=== PATIENT | female | born 1935 | race Caucasian/White ===

== ENCOUNTER 2016-06-16 12:45 | Inpatient (IN) ==
--- NOTE | 2016-06-16 15:24 | Internal Med History&Physical ---
<Pierce Oconnell - Last Filed: 06/16/16 18:16> Date of Encounter: 06/16/16 Time of Encounter: 14:33 Assessment and Plan (1) Preoperative clearance Current visit: Yes Status: Acute -L hip and wrist fracture. Admitted from [facility] EM department. -Orders at [facility]: labs, CPK, UA, PTT/INR, CT the head and spine shows no acute intracranial abnormality, EKG shows sinus, T wave inversion, QTc 486; X-ray 2 view left hip shows subcapital fracture; Three-view of the left wrist shows acute fractures of the distal left radius and ulna. CD with images with patient information on the floor. -Does not complain of knee or foot pain. -Will reorder labs, echo ordered. -No surgical clearance. Pending cardio consult. (2) Abnormal EKG Current visit: Yes Status: Acute -Patient denies CP, SOB, Cardiac history, surgical history only for total hysterectomy and rectal surgery. Only takes Aspirin 325mg BID. No blood thinners. Started on Heparin SQ -EKG shows ventricular rate 76, normal sinus rhythm, T-wave abnormality, prolonged QTC. Unable to compare to previous EKG. -Echo, troponin, repeat labs ordered, cardiology consulted, -QTC 486, hold risperidone and zofran. (3) Closed left hip fracture Current visit: Yes Status: Acute -Surgeon admitted patient. Qualifiers: Encounter type: initial encounter Qualified Code(s): S72.002A - Fracture of unspecified part of neck of left femur, initial encounter for closed fracture (4) Closed fracture of left wrist Current visit: Yes Status: Acute Qualifiers: Encounter type: initial encounter Qualified Code(s): S62.102A - Fracture of unspecified carpal bone, left wrist, initial encounter for closed fracture (5) Multiple allergies Current visit: Yes Status: Acute -Multiple allergies. Sulfa and penicillin allergy causes anaphylaxis -Patient took morphine, zofran and Ativan without complication in ED. Internal Medicine - H&P: HPI Chief complaint: L Wrist and Hip fracture Admitted From: Direct Admit Plans for Post Hospital Care: Home History of present illness: Ms. Brenner is a 81 year old female admitted from [facility] for L wrist and Hip fracture. At 6:30am this morning patient trip and fell on the floor. The trip was from being clumsy and not putting her shoes on all the way. She lives home alone, but has her children who are close and check up on her a lot. At the ER, workup revealed L hip and L wrist fracture. Patient is in the room with her sisters. She is speaking clearly, smiling, laughing, complains of moderate pain over the fracture areas. Denies any CP, SOB. Admits to tingling in her fingers, no tingling in her leg. She is able to feel and move her fingers/toes. 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 Has not gotten tetanus in last 10 years, unsure if received in ED. takes aspirin 325mg BID for "achy joints". Past Med Surg Social Fam HX - Past Medical History Source: patient, other (and daughter at bedside) Medical history: dementia Psychiatric history: depression, previous psychiatric hospitalization - Past Surgical History Surgical History: hysterectomy (total), other (rectal surgery to remove hemrroids ) - Social History Smoking Status: Never smoker Smokeless Tobacco Status: No Drug use: none Internal Medicine - H&P: Meds Aspirin [Ecotrin] 325 mg PO BID 06/16/16 [History] Buspirone HCl [Buspar] 10 mg PO TID 06/16/16 [History] Latanoprost [Xalatan] 1 drop BOTH EYES HS 06/16/16 [History] RisperiDONE [Risperdal] 0.5 mg PO TID 06/16/16 [History] Allergies acetaminophen [From Percocet] Allergy (Verified 06/16/16 14:28) See Comments UNFORSURE ciprofloxacin [From Cipro] Allergy (Verified 06/16/16 14:28) Congested codeine Allergy (Verified 06/16/16 14:28) Hives Cortisone Allergy (Verified 06/16/16 14:28) See Comments 10 YEARS AGO escitalopram [From Lexapro] Allergy (Verified 06/16/16 14:28) See Comments gabapentin [From Neurontin] Allergy (Verified 06/16/16 14:28) See Comments CAUSES EYE TO JUMP AROUND iodine Allergy (Verified 06/16/16 14:28) Anaphylaxis lovastatin [From Mevacor] Allergy (Verified 06/16/16 14:28) See Comments ON ALLERGY LIST BUT PATIENT IS UNFORSURE meperidine [From Demerol] Allergy (Verified 06/16/16 14:28) See Comments UNFORSURE mometasone furoate [From Nasonex] Allergy (Verified 06/16/16 14:28) See Comments REALLY STRONG SO I WENT BACK TO [facility] niacin [From Niaspan Extended-Release] Allergy (Verified 06/16/16 14:28) See Comments UNSURE omeprazole [From Prilosec] Allergy (Verified 06/16/16 14:28) Swelling of Lip/Tongue/Throat Oxycodone [From Percocet] Allergy (Verified 06/16/16 14:28) See Comments UNFORSURE Penicillins [PCN] Allergy (Verified 06/16/16 14:28) Hives prednisone Allergy (Verified 06/16/16 14:28) See Comments PATIENT UNFORSURE propoxyphene [From Darvon] Allergy (Verified 06/16/16 14:28) See Comments ON ALLERGY LIST BUT PATIENT UNFOR SURE OF REACTION risedronate sodium [From Actonel] Allergy (Verified 06/16/16 14:28) See Comments UNFORSURE rofecoxib [From Vioxx] Allergy (Verified 06/16/16 14:28) See Comments UNFORSURE HAD A REACTION AND HE CHANGED MY MEDS Sulfa (Sulfonamide Antibiotics) Allergy (Verified 06/16/16 14:28) Anaphylaxis topiramate [From Topamax] Allergy (Verified 06/16/16 14:28) See Comments UNFORSURE tramadol [From Ultram] Allergy (Verified 06/16/16 14:28) Hives venlafaxine [From Effexor] Allergy (Verified 06/16/16 14:28) See Comments UNFORSURE All Systems PM: A 10-system review of systems was performed and is negative for pertinent findings except as documented above in the HPI. - Cardiovascular Cardiovascular ROS IM: no chest pain, no diaphoresis, no dyspnea on exertion, no irregular heart rhythm, no palpitations, no syncope - Respiratory Respiratory: no cough, no dyspnea, no hemoptysis, no wheezing, no pain on inspiration - Gastrointestinal Gastrointestinal: no abdominal pain, no diarrhea, no hematemesis, no hematochezia, no melena, no nausea, no vomiting - Genitourinary Genitourinary: no change in urinary stream, no dysuria, no flank pain, no hematuria - Musculoskeletal Musculoskeletal ROS IM: as per HPI - Integumentary Integumentary IM: as per HPI - Neurological Neurological ROS: tingling, no confusion, no convulsions, no focal weakness, no numbness, no tremor(s) - Psychiatric Psychiatric: depression, no suicidal ideation, no visual hallucinations - Constitutional Vitals: Temp Pulse Resp BP Pulse Ox 97.8 F 71 16 134/72 96 06/16/16 13:47 06/16/16 13:47 06/16/16 13:47 06/16/16 13:47 06/16/16 13:47 General appearance: Present: A&O X 3, no acute distress, answers questions appropriately. Absent: morbidly obese, underweight - Head Head exam: Present: atraumatic - Eye Eye exam: Present: EOMI - ENT ENT exam: Present: mucous membranes dry - Respiratory Respiratory exam: Present: CTAB - Cardiovascular Cardiovascular exam: Present: RRR. Absent: diastolic murmur, distant heart sounds, systolic murmur - GI/Abdominal GI/Abdominal exam: Present: normal bowel sounds, soft, no peritoneal signs. Absent: distended, tenderness - Expanded Lower Extremities Exam Hip exam: Present: swelling (mild ), tenderness. Absent: abrasion, crepitus, deformity, ecchymosis, erythema, laceration Upper Leg exam: Present: swelling (mild), tenderness. Absent: abrasion, crepitus, deformity, dislocation, ecchymosis, laceration Knee exam: Absent: ecchymosis - Other Additional findings: L arm: in splint. able to move fingers against resistance, sensation WNL, warm to touch/good blood flow. no signs of splint wrapped too tight. L leg: tibial and pedal pulses intact. able to dorsiflex and plantar flex against resistance. No pain in foot or knee. Internal Med - H&P Results - Labs CBC & Chem 7: 06/16/16 15:58 06/16/16 15:58 - EKG Data -: EKG Interpreted by Myself EKG shows normal: sinus rhythm, ST-T waves (inversion) Rate: normal - EKG Data Prior EKG available for review: no Interpretation IM: other (rate 76, rhythm sinus,OK 158, QRS 92, T wave inversions, QTc 486 ) <Cuco Castañeda Last Filed: 06/17/16 14:50> Date of Encounter: 06/16/16 Internal Medicine - H&P: HPI History of present illness: Ms. Brenner is a 81 year old female All Systems PM: A 10-system review of systems was performed and is negative for pertinent findings except as documented above in the HPI. - Constitutional Vitals: Temp Pulse Resp BP Pulse Ox 98.5 F 95 18 155/74 96 06/17/16 10:34 06/17/16 10:34 06/17/16 10:34 06/17/16 10:34 06/17/16 10:34 Internal Med - H&P Results - Labs CBC & Chem 7: 06/17/16 03:50 06/17/16 03:50 Labs: Short CBC 06/16/16 06/17/16 Range/Units 15:58 03:50 WBC 9.9 (4.3-11.1) K/mcL Hgb 13.0 (11.5-15.4) g/dL Hct 36.5 (35.3-44.9) % Plt Count 130 L 126 L (140-400) K/mcL Neutrophils # 8.8 (1.6-8.9) K/mcL BMP 06/16/16 06/17/16 15:58 03:50 Sodium 138 137 Potassium 4.1 3.8 Chloride 105 108 Carbon Dioxide 21 18 L BUN 14 15 Creatinine 0.73 0.74 Glucose 116 H 103 H Calcium 9.1 8.3 L Cardiac Enzymes 06/16/16 Range/Units 15:58 Troponin I 0.01 (0-0.03) ng/mL - Attending Attestation I examined this patient and my medical decision-making was reviewed with the Resident Physician on 06/17/16. I agree with the documented findings, disposition and treatment plan as described except to the extent set forth below. Ms. Brenner is an 81 y/o female with no reported history had mechanical fall today. She is found to have L hip and L wrist fractures and transferred here for repair. At the current time her only complaint is pain in arm and leg. Denies hx of heart disease. No CP with walking and no dizziness or dyspnea. Exam Alert. Mod distress due to pain Mucus membranes dry Heart reg with murmur Lungs clear Abd soft Pulses present EKG - ST/T changes - ? LVH versus ischemia I/P 1. L hip fracture - needs cardiac clearance due to abnl EKG 2. L wrist fracture 3. Abnl EKG - most likely LVH. Echo ordered. Troponin ordered. Card eval. Further diagnoses and plan as above. Pt high risk due to acute fracture.
[2016-06-16 16:16] LABS: Basophils % 0.2 %; Hematocrit 36.5 % (35.3-44.9); Immature Granulocytes % 0.5 % (0-4); Lymphocytes # 0.6 K/mcL (0.6-4.6); Mean Corpuscular HGB Conc 35.6 g/dL (31.6-35.5); Mean Corpuscular Hemoglobin 32.1 pg (28.0-33.3); Mean Corpuscular Volume 90.1 fL (83.0-100.0); Mean Platelet Volume 10.9 fL (9.4-12.4); Monocytes # 0.4 K/mcL (0.0-1.3); Monocytes % 4.4 %; Neutrophils # 8.8 K/mcL (1.6-8.9); Platelet Count 130 K/mcL (140-400); Red Blood Count 4.05 M/mcL (3.82-4.97); Red Cell Distribution Width 12.8 % (11.5-14.5); Segmented Neutrophils % 88.9 %
[2016-06-16] MEDS ORDERED: *HR* Morphine 2 MG/ML SYRINGE IVP PRN (16:18)
[2016-06-16 16:23] LABS: INR 1.1; Prothrombin Time 11.9 Seconds (9.4-12.1)
[2016-06-16 16:26] LABS: Activated Partial Thrombo Time 24.3 Seconds (26.0-36.0)
[2016-06-16 16:28] LABS: BUN/Creatinine Ratio 19 (6-26); Blood Urea Nitrogen 14 mg/dL (7-20); Calcium 9.1 mg/dL (8.6-10.8); Carbon Dioxide 21 mEq/L (19-29); Chloride 105 mEq/L (98-109); Glucose 116 mg/dL (70-99); Osmolality,Calculated 287 (280-300); Potassium 4.1 mEq/L (3.5-4.5); Sodium 138 mEq/L (136-145); eGFR For African Americans > 60 (> 60); eGFR For Non-African Americans > 60 (> 60)
[2016-06-16] MEDS: 0.9 % Sodium Chloride 1,000 ML IVC SCH (16:52)
[2016-06-16] MEDS ORDERED: Ketorolac 15 MG/ML VIAL IVP PRN (18:40)
[2016-06-16] MEDS ORDERED: *HR* HYDROmorphone 2 MG/ML SYRINGE IVP PRN (18:41)
--- NOTE | 2016-06-16 18:52 | Orthopedic Consult Note ---
Date of Encounter: 06/16/16 Time of Encounter: 18:44 History of Present Illness Chief complaint: Left wrist and hip pain HPI: Ms. Brenner is a 81 year old right hand dominant female sustained an injury to her left hip and left wrist in a fall in the home today. She states that she was getting up and did not have her slippers on completely when she stumbled and fell. She was unable to weight-bear. She was brought initially to [facility] where x-rays taken revealed evidence of a left hip and left wrist fracture. She was transferred to [facility] for definitive care. She denies any other injuries. Denies neurovascular complaints. For complete history and physical data please refer to the completed portion the medical record. Orthopedic examination reveals left lower extremity be held in a shortened and rotated position. Distal neurosensory exam is intact. The left upper extremity is in a splint extending beyond the fingertips. There does appear to be intact neurosensory exam. Laboratory data includes a normal hemoglobin at 13.0. White blood cell count is normal. Platelet count is slightly low at 130. Chemistries are normal other than a mildly elevated blood glucose of 116. Reviewed x-rays from [facility]. The left wrist reveals a complex comminuted and displaced fracture of her left distal radius. This is associated with an ulnar styloid fracture. Left hip x-ray reveals a displaced femoral neck fracture. Generalized osteopenia. Impression: #1 Displaced left femoral neck fracture #2. Displaced, comminuted left distal radius fracture Recommendation: I recommended the patient that these fractures be treated surgically. Recommend a cemented hemiarthroplasty of left hip to allow her immediate full weightbearing ambulation. I also recommended proceeding with open reduction with internal fixation of left distal radius fracture. This would allow her to use a platform walker, she will not be able to use a standard walker and bear weight across the wrist. A long discussion regarding the surgical procedures as well as potential risks and complications including but not limited to bleeding infection blood clots nerve injury malunion nonunion stiffness hip dislocation and leg length or rotational deformities. Patient is well aware of the discussion.He is asked appropriate questions and these were answered. She has signed informed consent for the surgical procedure. Anticipate proceeding tomorrow. Echocardiogram and cardiology evaluation preoperatively have been ordered therefore we will delay the surgery until proximally 12 noon. Thank you for liming to see and care for Mrs. Brenner. Sincerely, Elvin Boothe,DO Past Med Surg Social Fam HX - Past Medical History Medical history: dementia Psychiatric history: depression, previous psychiatric hospitalization - Past Surgical History Surgical History: hysterectomy (total), other (rectal surgery to remove hemrroids ) - Social History Smoking Status: Never smoker Smokeless Tobacco Status: No Drug use: none Medications and Allergies Aspirin [Ecotrin] 325 mg PO BID 06/16/16 [History] Buspirone HCl [Buspar] 10 mg PO TID 06/16/16 [History] Latanoprost [Xalatan] 2.5 ml OP DAILY 06/16/16 [History] RisperiDONE [Risperdal] 0.5 mg PO TID 06/16/16 [History] Allergies acetaminophen [From Percocet] Allergy (Verified 06/16/16 14:28) See Comments UNFORSURE ciprofloxacin [From Cipro] Allergy (Verified 06/16/16 14:28) Congested codeine Allergy (Verified 06/16/16 14:28) Hives Cortisone Allergy (Verified 06/16/16 14:28) See Comments 10 YEARS AGO escitalopram [From Lexapro] Allergy (Verified 06/16/16 14:28) See Comments gabapentin [From Neurontin] Allergy (Verified 06/16/16 14:28) See Comments CAUSES EYE TO JUMP AROUND iodine Allergy (Verified 06/16/16 14:28) Anaphylaxis lovastatin [From Mevacor] Allergy (Verified 06/16/16 14:28) See Comments ON ALLERGY LIST BUT PATIENT IS UNFORSURE meperidine [From Demerol] Allergy (Verified 06/16/16 14:28) See Comments UNFORSURE mometasone furoate [From Nasonex] Allergy (Verified 06/16/16 14:28) See Comments REALLY STRONG SO I WENT BACK TO [facility] niacin [From Niaspan Extended-Release] Allergy (Verified 06/16/16 14:28) See Comments UNSURE omeprazole [From Prilosec] Allergy (Verified 06/16/16 14:28) Swelling of Lip/Tongue/Throat Oxycodone [From Percocet] Allergy (Verified 06/16/16 14:28) See Comments UNFORSURE Penicillins [PCN] Allergy (Verified 06/16/16 14:28) Hives prednisone Allergy (Verified 06/16/16 14:28) See Comments PATIENT UNFORSURE propoxyphene [From Darvon] Allergy (Verified 06/16/16 14:28) See Comments ON ALLERGY LIST BUT PATIENT UNFOR SURE OF REACTION risedronate sodium [From Actonel] Allergy (Verified 06/16/16 14:28) See Comments UNFORSURE rofecoxib [From Vioxx] Allergy (Verified 06/16/16 14:28) See Comments UNFORSURE HAD A REACTION AND HE CHANGED MY MEDS Sulfa (Sulfonamide Antibiotics) Allergy (Verified 06/16/16 14:28) Anaphylaxis topiramate [From Topamax] Allergy (Verified 06/16/16 14:28) See Comments UNFORSURE tramadol [From Ultram] Allergy (Verified 06/16/16 14:28) Hives venlafaxine [From Effexor] Allergy (Verified 06/16/16 14:28) See Comments UNFORSURE All Systems Reviewed: A 10-system review of systems was performed and is negative for pertinent findings except as documented above in the HPI. Physical Exam - Constitutional Vitals: Temp Pulse Resp BP Pulse Ox 97.4 F L 74 16 134/69 97 06/16/16 15:29 06/16/16 15:29 06/16/16 15:29 06/16/16 15:29 06/16/16 15:29 Results - Labs Result Diagrams: 06/16/16 15:58 06/16/16 15:58 Labs: Abnormal lab results MCHC 35.6 g/dL (31.6-35.5) H 06/16/16 15:58 Plt Count 130 K/mcL (140-400) L 06/16/16 15:58 APTT 24.3 Seconds (26.0-36.0) L 06/16/16 15:58 Glucose 116 mg/dL (70-99) H 06/16/16 15:58 H & H 06/16/16 Range/Units 15:58 Hgb 13.0 (11.5-15.4) g/dL Hct 36.5 (35.3-44.9) % All other labs normal. Consult Discharge Plan - Plan Referrals: NO,PCP [Primary Care Provider] -
[2016-06-16] MEDS ORDERED: *HR* Heparin 5,000 UNIT/ML VIAL SQ SCH (21:00)
[2016-06-16] MEDS ORDERED: Latanoprost 2.5 ML BOTTLE BOTH EYES SCH (22:45)
[2016-06-17] MEDS: 0.9 % Sodium Chloride 1,000 ML IVC SCH (04:42)
[2016-06-17 04:56] LABS: BUN/Creatinine Ratio 20 (6-26); Blood Urea Nitrogen 15 mg/dL (7-20); Calcium 8.3 mg/dL (8.6-10.8); Carbon Dioxide 18 mEq/L (19-29); Chloride 108 mEq/L (98-109); Glucose 103 mg/dL (70-99); Osmolality,Calculated 285 (280-300); Potassium 3.8 mEq/L (3.5-4.5); Sodium 137 mEq/L (136-145); eGFR For African Americans > 60 (> 60); eGFR For Non-African Americans > 60 (> 60)
--- NOTE | 2016-06-17 09:40 | Cardiology Consult Note ---
Date of Encounter: 06/17/16 Time of Encounter: 08:45 Assessment and Plan (1) Preoperative clearance Current Visit: Yes Status: Acute Pre-operative risk stratification for surgical repair of left wrist and hip fracture under general anesthesia. Denies cardiac pertaining history. States is very active at home, able to describe activity of at least 4 METS without symptoms--chest pain or discomfort , dyspnea. Reports remote stress test 10+ years ago that was reportedly normal. ECG shows ST/T wave abnormalities in the anterolateral leads--no prior ECG for comparison. Recommend echocardiogram. Further recommendations pending echocardiogram results. Discussion w patient/family: The assessment and plan as outlined above was discussed with the patient and/or family members who expressed understanding and agreement. All questions were answered. Thank you for involving us in the care of your patient. Please call with any questions. The patient will be discussed and reviewed with Dr. Carranza; changed to be made accordingly. History of Present Illness Consult date: 06/17/16 Requesting physician: Pierce Oconnell Consult reason: Pre-operative clearance Chief complaint: Fall History of present illness: Ms. Brenner is a 81 year old female with PMH significant for dementia and anxiety who presented to [facility] ED after mechanical fall; she was then transferred to [facility] for likely surgical repair of left arm and left hip fracture. Cardiology consulted this AM for pre-operative risk stratification and abnormal ECG. She reports she woke up in the night and as she was walking to the bathroom she tripped d/t oversized slippers and fell. Denies LOC, dizziness, dyspnea, chest pain or discomfort, or any other symptoms prior to fall. 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 Past Med Surg Social Fam HX - Past Medical History Medical history: dementia Psychiatric history: depression, previous psychiatric hospitalization - Past Surgical History Surgical History: hysterectomy (total), other (rectal surgery to remove hemrroids ) - Social History Smoking Status: Never smoker Smokeless Tobacco Status: No Drug use: none Medications and Allergies Aspirin [Ecotrin] 325 mg PO BID 06/16/16 [History] Buspirone HCl [Buspar] 10 mg PO TID 06/16/16 [History] Latanoprost [Xalatan] 2.5 ml OP DAILY 06/16/16 [History] RisperiDONE [Risperdal] 0.5 mg PO TID 06/16/16 [History] Allergies acetaminophen [From Percocet] Allergy (Verified 06/16/16 14:28) See Comments UNFORSURE ciprofloxacin [From Cipro] Allergy (Verified 06/16/16 14:28) Congested codeine Allergy (Verified 06/16/16 14:28) Hives Cortisone Allergy (Verified 06/16/16 14:28) See Comments 10 YEARS AGO escitalopram [From Lexapro] Allergy (Verified 06/16/16 14:28) See Comments gabapentin [From Neurontin] Allergy (Verified 06/16/16 14:28) See Comments CAUSES EYE TO JUMP AROUND iodine Allergy (Verified 06/16/16 14:28) Anaphylaxis lovastatin [From Mevacor] Allergy (Verified 06/16/16 14:28) See Comments ON ALLERGY LIST BUT PATIENT IS UNFORSURE meperidine [From Demerol] Allergy (Verified 06/16/16 14:28) See Comments UNFORSURE mometasone furoate [From Nasonex] Allergy (Verified 06/16/16 14:28) See Comments REALLY STRONG SO I WENT BACK TO [facility] niacin [From Niaspan Extended-Release] Allergy (Verified 06/16/16 14:28) See Comments UNSURE omeprazole [From Prilosec] Allergy (Verified 06/16/16 14:28) Swelling of Lip/Tongue/Throat Oxycodone [From Percocet] Allergy (Verified 06/16/16 14:28) See Comments UNFORSURE Penicillins [PCN] Allergy (Verified 06/16/16 14:28) Hives prednisone Allergy (Verified 06/16/16 14:28) See Comments PATIENT UNFORSURE propoxyphene [From Darvon] Allergy (Verified 06/16/16 14:28) See Comments ON ALLERGY LIST BUT PATIENT UNFOR SURE OF REACTION risedronate sodium [From Actonel] Allergy (Verified 06/16/16 14:28) See Comments UNFORSURE rofecoxib [From Vioxx] Allergy (Verified 06/16/16 14:28) See Comments UNFORSURE HAD A REACTION AND HE CHANGED MY MEDS Sulfa (Sulfonamide Antibiotics) Allergy (Verified 06/16/16 14:28) Anaphylaxis topiramate [From Topamax] Allergy (Verified 06/16/16 14:28) See Comments UNFORSURE tramadol [From Ultram] Allergy (Verified 06/16/16 14:28) Hives venlafaxine [From Effexor] Allergy (Verified 06/16/16 14:28) See Comments UNFORSURE All Systems Review: A 10-system review of systems was performed and is negative for pertinent findings except as documented above in the HPI. - Cardiovascular Cardiovascular: as per HPI Physical Examination Vital Signs, Last 4 Hours Temp Pulse Resp BP Pulse Ox 06/17/16 06:54 98.4 F 83 16 137/68 99 General: Conversant, No Apparent Distress HEENT: Atraumatic, Normocephaly Cardiac: Reg Rate and Rhythm, Normal S1 and S2 Lungs: Normal Breath Sounds Neuro: Alert and responsive Abdomen: Soft Skin: No rashes noted on visualized skin Musculoskeletal: No Chest Wall Tenderness Extremities: No Edema, Normal Pulses Other: right arm wrapped in CARMEN bandage Results 06/17/16 03:50 06/17/16 03:50 Lab Results 06/16/16 06/16/16 06/16/16 15:58 15:58 15:58 WBC 9.9 Hgb 13.0 Hct 36.5 Plt Count 130 L INR 1.1 APTT 24.3 L Sodium 138 Potassium 4.1 Chloride 105 Carbon Dioxide 21 BUN 14 Creatinine 0.73 Glucose 116 H Calcium 9.1 Troponin I 06/16/16 06/17/16 06/17/16 15:58 03:50 03:50 WBC Hgb Hct Plt Count 126 L INR APTT 23.8 L Sodium Potassium Chloride Carbon Dioxide BUN Creatinine Glucose Calcium Troponin I 0.01 06/17/16 03:50 WBC Hgb Hct Plt Count INR APTT Sodium 137 Potassium 3.8 Chloride 108 Carbon Dioxide 18 L BUN 15 Creatinine 0.74 Glucose 103 H Calcium 8.3 L Troponin I - Imaging and Cardiology Echo: pending Other Results: Telemetry not applied. - EKG Interpretation EKG results cardiology: personally reviewed Consult Discharge Plan - Plan Referrals: NO,PCP [Primary Care Provider] -
--- NOTE | 2016-06-17 09:54 | Anesthesia Evaluation PreOp ---
Date of Encounter: 06/17/16 Time of Encounter: 12:30 - Past History Planned Operation: L-Elias Hip/L-wrist ORIF Cardiac History: Denies any Significant Hx, Other (ECHO 06/17/16 - LVEF 70%, mild LVH, mild Aortic Stenosis w/gradient = 10 mmHg. No PulmHtn. Cardiac evaluation per Dr. 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 Hx of Dementia. Anxiety/Depression maintained on Buspar) Other Medical History: Denies Any Significant HX Anesthesia History: No Prior Anesthetic Complications, Past Anesthesia (HAROLDO, Rectal surgery/Hemorrhoidectomy) Drug use: none Medications and Allergies Aspirin [Ecotrin] 325 mg PO BID 06/16/16 [History] Buspirone HCl [Buspar] 10 mg PO TID 06/16/16 [History] Latanoprost [Xalatan] 1 drop BOTH EYES HS 06/16/16 [History] RisperiDONE [Risperdal] 0.5 mg PO TID 06/16/16 [History] Allergies acetaminophen [From Percocet] Allergy (Verified 06/16/16 14:28) See Comments UNFORSURE ciprofloxacin [From Cipro] Allergy (Verified 06/16/16 14:28) Congested codeine Allergy (Verified 06/16/16 14:28) Hives Cortisone Allergy (Verified 06/16/16 14:28) See Comments 10 YEARS AGO escitalopram [From Lexapro] Allergy (Verified 06/16/16 14:28) See Comments gabapentin [From Neurontin] Allergy (Verified 06/16/16 14:28) See Comments CAUSES EYE TO JUMP AROUND iodine Allergy (Verified 06/16/16 14:28) Anaphylaxis lovastatin [From Mevacor] Allergy (Verified 06/16/16 14:28) See Comments ON ALLERGY LIST BUT PATIENT IS UNFORSURE meperidine [From Demerol] Allergy (Verified 06/16/16 14:28) See Comments UNFORSURE mometasone furoate [From Nasonex] Allergy (Verified 06/16/16 14:28) See Comments REALLY STRONG SO I WENT BACK TO [facility] niacin [From Niaspan Extended-Release] Allergy (Verified 06/16/16 14:28) See Comments UNSURE omeprazole [From Prilosec] Allergy (Verified 06/16/16 14:28) Swelling of Lip/Tongue/Throat Oxycodone [From Percocet] Allergy (Verified 06/16/16 14:28) See Comments UNFORSURE Penicillins [PCN] Allergy (Verified 06/16/16 14:28) Hives prednisone Allergy (Verified 06/16/16 14:28) See Comments PATIENT UNFORSURE propoxyphene [From Darvon] Allergy (Verified 06/16/16 14:28) See Comments ON ALLERGY LIST BUT PATIENT UNFOR SURE OF REACTION risedronate sodium [From Actonel] Allergy (Verified 06/16/16 14:28) See Comments UNFORSURE rofecoxib [From Vioxx] Allergy (Verified 06/16/16 14:28) See Comments UNFORSURE HAD A REACTION AND HE CHANGED MY MEDS Sulfa (Sulfonamide Antibiotics) Allergy (Verified 06/16/16 14:28) Anaphylaxis topiramate [From Topamax] Allergy (Verified 06/16/16 14:28) See Comments UNFORSURE tramadol [From Ultram] Allergy (Verified 06/16/16 14:28) Hives venlafaxine [From Effexor] Allergy (Verified 06/16/16 14:28) See Comments UNFORSURE - Meds/Allergy Pre-op Review Medications Reviewed: Yes Allergies Reviewed: Yes (MULTIPLE Allergies. PCN & SULFA = ANAPHYLAXIS) Anesthesia Results - Labs 06/17/16 03:50 06/17/16 03:50 Laboratory Tests 06/16/16 06/17/16 06/17/16 15:58 03:50 03:50 PT 11.9 INR 1.1 APTT 23.8 L Sodium 137 Potassium 3.8 Chloride 108 Carbon Dioxide 18 L BUN 15 Creatinine 0.74 Est GFR (Non-Af Amer) > 60 Glucose 103 H Calcium 8.3 L Laboratory Results - Imaging EKG: image reviewed (76bpm SR. T wave abnormality - inferior& anterolateral ischemia considered. Prolonged QT) Anesthesia Exam Vital Signs Temp Pulse Resp BP Pulse Ox 06/17/16 06:54 98.4 F 83 16 137/68 99 06/17/16 00:15 98.4 F 80 14 140/62 98 06/16/16 20:44 98.3 F 84 16 145/67 98 01/21/17 15:29 97.4 F L 74 16 134/69 97 06/16/16 13:47 97.8 F 71 16 134/72 96 Intake and Output Vital Signs Temp Pulse Resp BP Pulse Ox 06/17/16 10:34 98.5 F 95 18 155/74 96 06/17/16 06:54 98.4 F 83 16 137/68 99 06/17/16 00:15 98.4 F 80 14 140/62 98 06/16/16 20:44 98.3 F 84 16 145/67 98 06/16/16 15:29 97.4 F L 74 16 134/69 97 06/16/16 13:47 97.8 F 71 16 134/72 96 Intake and Output 06/16/16 06/17/16 06/17/16 23:59 07:59 15:59 Intake Total 180 / 180 1000 / 1000 Output Total 350 / 350 500 / 500 Balance -170 / -170 1000 / 1000 -500 / -500 Intake: IV Fluids 1000 / 1000 0.9 % Sodium Chloride 1, 1000 / 1000 000 ML @ 100 mls/hr IVC . 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 LOC: Oriented [employer] SOFTWARE CONSULTANT Motor: Normal RUE, Normal RLE, Normal Face, Deficit LUE, Deficit LLE [employer] SOFTWARE CONSULTANT Sensory: Normal: RUE, RLE, Face, Deficit: LUE, LLE - Cardiac Rhythm: Regular (frequent ectopic beats heard) Murmur: Systolic JVD: No - Pulmonary Breath Sounds: bilateral Clear Respiratory Effort: Symmetrical Anesthesia Assess/Plan ASA Score: 2 Modified Marlee Scale for Level of Consciousness: Cooperative, oriented, and tranquil Anesthetic Plan: General Monitoring Plan: Standard Monitors Recovery Plan: PACU Anes Supervising Prov Stmt: Pt seen/evaluated, R&B discussed, questions answered and consent obtained. Zandra Jay MD
[2016-06-17] MEDS ORDERED: Lidocaine -MPF 2% 2 ML VIAL ONE ×2 (11:25)
[2016-06-17] MEDS ORDERED: *HR* Succinylcholine 200 MG/10 ML VIAL IVP ONE (11:25)
[2016-06-17] MEDS ORDERED: Lidocaine -MPF 4% 5 ML AMPUL ONE (11:25)
[2016-06-17] MEDS ORDERED: *HR* FentaNYL (PF) 100 MCG/2 ML VIAL ONE ×2 (11:25→15:08)
[2016-06-17] MEDS ORDERED: *HR* Propofol 200 MG/20 ML VIAL IVP ONE (11:25)
[2016-06-17] MEDS ORDERED: Vancomycin 1,000 MG VIAL ONE (11:34)
[2016-06-17] MEDS ORDERED: Vancomycin 1,000 MG in D5% in Water 250 ML IV ONE (11:45)
--- NOTE | 2016-06-17 12:22 | ECHO - Doppler Report ---
Echocardiogram Name: Adelina Brenner Date of Study: 06/17/2016 Date: 1935 Ht: 61.0 in Medical Record#: [id number] Age: 81 Wt: 129.0 lb Gender: Female BSA: 1.57 Order #: [id number] Location: [facility] Room #: [facility] Reading Physician: Sean Carranza DO, [facility] Wire Inserter: Claire Marinelli RVT, [facility] Ordering Physician: Pierce Oconnell Primary Physician: None Indications: Abnormal EKG Impressions: LVEF 70%. Normal LV chamber size and function. Mild concentric left ventricular hypertrophy. Mild left ventricular diastolic dysfunction. Normal right ventricular structure and function. Mild aortic stenosis. Mean gradient 10 mmHg. No evidence of pulmonary hypertension. Left Ventricular Wall Motion: Rest Echo Findings All wall segments showed normal motion. Findings: Study Quality * Technically adequate exam. ECG Findings * Normal sinus rhythm. Left Ventricle * LVEF 70%. * Normal LV chamber size and function. * Mild concentric left ventricular hypertrophy. * Mild left ventricular diastolic dysfunction. Right Ventricle * Normal right ventricular structure and function. Left Atrium * Mildly dilated left atrium. Right Atrium * Normal right atrial size. Interatrial Septum * No evidence of PFO by color Doppler. Aortic Valve * Aortic valve not well visualized. * Grossly, the aortic valve lealfets appears mildly calcified. * No aortic regurgitation. * Mild aortic stenosis. Mean gradient 10 mmHg. Mitral Valve * Mild mitral annular calcification * Mildly thickened mitral valve leaflets. * No mitral regurgitation. * No mitral stenosis. Tricuspid Valve * Normal tricuspid valve structure and function. * Trace tricuspid regurgitation. * No evidence of pulmonary hypertension. Pulmonic Valve * Pulmonic valve not well visualized. * No pulmonic regurgitation. Aorta * Normally sized aortic root. Pericardium * There is a trivial pericardial effusion present. IVC * Normal IVC dimensions and inspiratory collapse. Pulmonary Artery * Normal visualized portions of the main pulmonary artery. History Measurements: BP: 155/ 74 2D Normal Values RVIDd: 2.60 cm <2.7 cm IVSd: 1.20 cm 0.6 - 1.0 cm LVIDd: 4.00 cm 3.7 - 5.6 cm LVPWd: 1.20 cm 0.6 - 1.1 cm LVIDs: 2.50 cm 1.5 - 3.6 cm AO: 2.70 cm < 4.0 cm LA: 2.80 cm 2.0 - 4.0cm %FS: 37.50 cm >25 % LVOT Diam: 1.90 cm LA volume: 49 Mitral Valve Dec Time:176.00 msec Peak E:1.06 m/sec Peak A:1.56 m/sec E/A Ratio:0.7 Peak E' Lat Yo:9.89 cm/s Peak E' Med Yo:7.66 cm/s E/E' Lat Ratio:10.7 E/E' Med Ratio:13.8 LVOT Peak Yo:1.02 m/sec Mean Yo:.71 m/sec Peak Grad:4.00 mmHg Mean Grad:2.00 mmHg Aortic Valve Peak Yo:2.25 m/sec Mean Yo:1.51 m/sec Peak Grad:20.00 mmHg Mean Grad:10.00 mmHg Valve Area:1.47 cm2 Tricuspid Valve TV Regurg Peak Grad: 32.00mmHg TV Regurg Peak Yo: 2.81m/sec Updated by Sean Carranza DO, FACBrenda, YENNIFER, FASJOYCE on 06/17/2016 12:17:29 PM Wall Motion Hernandez: 1=Normal, 2=Hypokinesis, 3=Akinesis, 4=Dyskinesis, 5=Aneurysmal, 6=Hyperkinetic, X=Not Visualized (Blank)=Missing
[2016-06-17] MEDS: Ringers Solution, Lactated 1,000 ML IVC SCH ×3 (12:30→22:02)
[2016-06-17] MEDS ORDERED: Acetaminophen IV 1,000 MG/100 ML INFUS..BTL ONE (12:40)
[2016-06-17] MEDS ORDERED: *HR* Midazolam HCl 2 MG/2 ML VIAL ONE (12:56)
[2016-06-17] MEDS ORDERED: *HR* Magnesium Sulfate 1 GM/2 ML VIAL ONE (13:13)
[2016-06-17] MEDS ORDERED: EPHEDrine 50 MG/ML VIAL ONE (13:14)
--- NOTE | 2016-06-17 13:19 | Event Note ---
Date of Encounter: 06/17/16 Time of Encounter: 13:18 Echocardiogram reviewed. LVEF normal. Mild noted. No further inpatient cardiac testing appears necessary at this time. Cardiology will sign off. Please call with questions.
[2016-06-17] MEDS ORDERED: *HR* HYDROmorphone 2 MG/ML SYRINGE ONE (15:08)
[2016-06-17] MEDS ORDERED: Ondansetron 4 MG/2 ML VIAL ONE (15:16)
--- NOTE | 2016-06-17 15:32 | Internal Med Progress Note ---
Date of Encounter: 06/17/16 Time of Encounter: 15:29 - Assessment and plan (1) Closed fracture of left wrist Current Visit: Yes Status: Acute Assessment and plan: planned for L-wrist ORIF, low risk as per cardiology. ECHO with normal LVEF management as per ortho team. Qualifiers: Encounter type: initial encounter Qualified Code(s): S62.102A - Fracture of unspecified carpal bone, left wrist, initial encounter for closed fracture (2) Closed left hip fracture Current Visit: Yes Status: Acute Assessment and plan: L-Hemiarthroplasty Hip planned as per ortho recommendation. low risk as per cardio to proceed for surgery. DVT prophylaxis, analgesics. monitor post op care. bedside PT/OT when able. keep NPO For now with IVF Qualifiers: Encounter type: initial encounter Qualified Code(s): S72.002A - Fracture of unspecified part of neck of left femur, initial encounter for closed fracture - Time Spent With Patient 25 - 35 minutes - Subjective Interval history: seen at the bedside,denies any complaints. admitted for Displaced left femoral neck fracture and Displaced, comminuted left distal radius fracture. ortho is consulted, planned for hemiarthroplasty of left hip and open reduction with internal fixation of left distal radius fracture. - Constitutional Vitals: Temp Pulse Resp BP Pulse Ox 98.5 F 95 18 155/74 96 06/17/16 10:34 06/17/16 10:34 06/17/16 10:34 06/17/16 10:34 06/17/16 10:34 General appearance: Present: A&O X 3, no acute distress, answers questions appropriately. Absent: morbidly obese, underweight Exam: General appearance: Present: A&O X 3, no acute distress, answers questions appropriately. Absent: morbidly obese, underweight - Head Head exam: Present: atraumatic - Eye Eye exam: Present: EOMI - ENT ENT exam: Present: mucous membranes dry - Respiratory Respiratory exam: Present: CTAB - Cardiovascular Cardiovascular exam: Present: RRR. Absent: diastolic murmur, distant heart sounds, systolic murmur - GI/Abdominal GI/Abdominal exam: Present: normal bowel sounds, soft, no peritoneal signs. Absent: distended, tenderness - Expanded Lower Extremities Exam Hip exam: Present: swelling (mild ), tenderness. Absent: abrasion, crepitus, deformity, ecchymosis, erythema, laceration Upper Leg exam: Present: swelling (mild), tenderness. Absent: abrasion, crepitus, deformity, dislocation, ecchymosis, laceration Knee exam: Absent: ecchymosis Internal Medicine: Result - Labs CBC & Chem 7: 06/17/16 03:50 06/17/16 03:50 Labs: Short CBC 06/16/16 06/17/16 Range/Units 15:58 03:50 WBC 9.9 (4.3-11.1) K/mcL Hgb 13.0 (11.5-15.4) g/dL Hct 36.5 (35.3-44.9) % Plt Count 130 L 126 L (140-400) K/mcL Neutrophils # 8.8 (1.6-8.9) K/mcL BMP 06/16/16 06/17/16 15:58 03:50 Sodium 138 137 Potassium 4.1 3.8 Chloride 105 108 Carbon Dioxide 21 18 L BUN 14 15 Creatinine 0.73 0.74 Glucose 116 H 103 H Calcium 9.1 8.3 L Cardiac Enzymes 06/16/16 Range/Units 15:58 Troponin I 0.01 (0-0.03) ng/mL - ABG Interpretation ABG results: PT/INR, D-dimer PT 11.9 Seconds (9.4-12.1) 06/16/16 15:58 Consult Discharge Plan - Plan Referrals: NO,PCP [Primary Care Provider] -
[2016-06-17] MEDS ORDERED: Lacri-Lube 3.5 GM TUBE ONE (15:56)
--- NOTE | 2016-06-17 16:27 | Operative Note ---
Date of procedure: 06/17/16 Pre-op diagnosis: #1. Left femoral neck fracture #2. Displaced, comminuted, intra-articular Post-op diagnosis: same Procedure: #1. Hemiarthroplasty left hip #2. Application of platelet rich plasma left hip #3. Open reduction with internal fixation of left distal radius fracture #4. Fluoroscopic guidance for ORIF left wrist Implants: #1. Richie cemented size 12 LD/Fx femoral stem with an 11 mm distal centralizer , a -4 mm adapter and a 43 mm unipolar endoprosthesis #2. [employer] innovations left mini narrow DVR with multiple screws Complications: None Anesthesia: YASMIN Surgeon: Elvin Boothe Family Coach Other: Jose Manuel Price Tourniquet Time (Minutes): 200 Specimen: None Condition: stable Disposition: PACU Procedure in Detail: Gross findings: Preoperative x-rays revealed a displaced left femoral neck fracture in this 81-year-old white female. There was some generalized osteopenia. Left wrist revealed a displaced comminuted intra-articular fracture of the distal radius with an associated ulnar styloid fracture. Intraoperative findings were as anticipated. A slightly comminuted left femoral neck fracture was identified. The fracture was treated by resection of the head and neck and cementing a unipolar endoprosthesis. Excellent fit and function are noted with no tendency toward subluxation or dislocation of the hip. Regarding the left wrist, there was noted to be comminution of the distal radius with at least 5 or more fragments. The fracture was able to be reduced into excellent position and then stabilized with a fall on her locking plate and screw type construct. Multiplane fluoroscopy was used to verify reduction of the fracture and placement of the implants. Procedure: Patient was taken to the operating room. Patient was administered general anesthesia. Patient was transferred to the operating room table and placed in the lateral recumbent position with the left side up and stabilized with the lateral hip stabilizing system. All pressure points were well-padded. Left hip was prepped and draped in normal standard fashion for surgery. Left lateral hip incision was created and dissection was carried through the bloodstained subcutaneous adipose tissue down to the level of the fascia pam. Fascia pam was split parallel with its fibers and Charnley retractor was placed. Abductors were taken down off the trochanter in a subperiosteal manner with electrocautery knife. This was tagged with #2 FiberWire suture for retraction and later repair. Capsulotomy was made up to the level of the acetabulum. Femoral neck osteotomy was made. Femoral head was removed from the acetabulum which was sized to a 43. Acetabulum was cleaned of clot and debris. The formal sizing was performed and a 43 mm head was selected. Sponge was placed in the acetabulum and attention was turned to the femur. Box osteotome was utilized to open up the medial trochanter. T-handled reamers passed down the femoral canal. Canal was then sequentially rasped up to and including a size 12. This gave good fit in the femur. Calcar planing was performed. Trialing was performed and a -4 mm neck length gave most appropriate tension. All trial components are now removed from the hip. A cement plug was placed distally. Femoral canal was irrigated with pulsatile lavage and then dried with a combination of suction and femoral sponge. Cement was now mixed. At the appropriate time the cement was instilled into the femur which was filled in a retrograde manner and then pressurized proximally for about 10 seconds. The assembled femoral component with the centralizer was then passed into the cement and impacted until the collar sat on the medial femoral calcar. Excess cement was trimmed away. Neutral position was maintained. Compression was maintained on the implant until the cement had fully hardened. Cement cleanup was now performed. Estrella taper and the stem was cleaned and dried and the head was then impacted with 3 sharp blows of the mallet. Final washout of the hip was performed. Hip was now reduced with a stable reduction identified. Platelet rich plasma and was now applied throughout the intraoperative and extra-articular planes. Capsulotomy was now closed with #2 FiberWire. Abductors were repaired to the trochanter with previously placed #2 FiberWire and reinforced with #2 Quill. Fascia pam was closed with several [id number] stitch of #2 FiberWire followed by #2 Quill. Deep subtendinous tissue was closed with running #2 Quill. Skin was closed with running 20 Quill followed by Prineo skin glue. Once a good hardened operative foam was applied and secured. Patient was now placed into an abduction pillow. Patient was then placed in the supine position and attention was turned to the wrist. Left upper extremity was prepped and draped in normal standard fashion and a tourniquet placed about the proximal forearm. Arm was exsanguinated utilizing Esmarch and tourniquet was inflated. Incision was made over the volar wrist blunt dissection was carried down to the distal radius. This was exposed in a subperiosteal manner. Wound was irrigated. Debridement of some small bony fragments was performed. Fracture was reduced. Fracture reduction was verified with multiplane fluoroscopy. The left mini narrow DVR plate was selected and sized with direct visualization and fluoroscopic verification. A single cortical screw was placed in the plate proximally. At this time multiple distal locking pegs were placed. Fluoroscopy was used to verify that the screws were well contained in the distal radius and the fracture reduction was maintained. This was followed by placing 2 locking screws in the shaft of the plate into the radius. Final fluoroscopic views were taken in multiple planes. The wound was now irrigated and closed with 5-0 nylon suture. Sterile dressings consisting of bacitracin, Adaptic, 4 x 4 gauze, sterile cast padding and Dk wraps are applied and secured. Tourniquet was now deflated. Patient was now awakened, extubated and transferred to the postanesthesia care unit in stable and satisfactory condition. All sponge needle and instrument counts are correct. No specimens were sent for pathology. Final estimated blood loss was 200 mL for the hip surgery and minimal blood loss for the left wrist surgery
[2016-06-17] MEDS ORDERED: Ondansetron 4 MG/2 ML VIAL IVP PRN (17:04)
[2016-06-17 17:33] LABS: Hematocrit 31.7 % (35.3-44.9)
[2016-06-17 17:36] LABS: Hemoglobin 11.2 g/dL (11.5-15.4)
[2016-06-17 17:45] LABS: BUN/Creatinine Ratio 18 (6-26); Blood Urea Nitrogen 13 mg/dL (7-20); Calcium 7.9 mg/dL (8.6-10.8); Carbon Dioxide 17 mEq/L (19-29); Chloride 107 mEq/L (98-109); Glucose 157 mg/dL (70-99); Osmolality,Calculated 285 (280-300); Potassium 3.7 mEq/L (3.5-4.5); Sodium 136 mEq/L (136-145); eGFR For African Americans > 60 (> 60); eGFR For Non-African Americans > 60 (> 60)
--- NOTE | 2016-06-17 18:01 | Anesthesia Evaluation Post Op ---
Date of Encounter: 06/17/16 Time of Encounter: 16:45 - Vital Signs Vital Signs: Vital Signs/O2 Sat/Glucose, Most Current Temp Pulse Resp BP Pulse Ox 06/17/16 17:16 97.9 F 87 12 148/73 98 06/17/16 16:42 98.3 F 89 12 136/73 97 06/17/16 16:32 98.0 F 106 14 144/70 97 06/17/16 16:22 80 12 130/71 97 06/17/16 16:12 78 12 126/67 98 06/17/16 16:02 97.6 F 83 12 127/64 98 - Lungs Lungs: Clear Ascult./Percussion, Treatment Ordered - Airway Airway: Non-obstructed - Cardiovascular Regular Rate - Mental Status Mental Status: Alert & Oriented, Answers Appropriately - Pain Pain Scale: 0 Pain Scale used: Numeric (1 - 10) - Nausea Vomiting Nausea Vomiting: Not Present - Hydration Hydration: Ice chips, Amezcua catheter - Discharge PostOp Status: Transfer Patient to floor Anes Supervising Prov Stmt: Pt seen/evaluated, VSS and pt has met criteria for discharge to floor.- MD Misty
[2016-06-17] MEDS ORDERED: *HR* Enoxaparin 30 MG/0.3 ML SYRINGE SQ SCH (19:00)
[2016-06-17] MEDS: *HR* Enoxaparin 30 MG/0.3 ML SYRINGE SQ SCH (19:37)
[2016-06-17] MEDS: Latanoprost 2.5 ML BOTTLE BOTH EYES SCH (19:38)
[2016-06-17] MEDS: *HR* HYDROmorphone 2 MG/ML SYRINGE IVP PRN (22:02)
[2016-06-18] MEDS ORDERED: Vancomycin 1,000 MG in D5% in Water 250 ML IV ONE (01:00)
[2016-06-18 03:38] LABS: BUN/Creatinine Ratio 19 (6-26); Blood Urea Nitrogen 12 mg/dL (7-20); Calcium 7.9 mg/dL (8.6-10.8); Carbon Dioxide 18 mEq/L (19-29); Chloride 105 mEq/L (98-109); Glucose 119 mg/dL (70-99); Osmolality,Calculated 277 (280-300); Sodium 133 mEq/L (136-145); eGFR For African Americans > 60 (> 60); eGFR For Non-African Americans > 60 (> 60)
[2016-06-18] MEDS: *HR* HYDROmorphone 2 MG/ML SYRINGE IVP PRN ×2 (04:45→15:42)
[2016-06-18] MEDS: Ringers Solution, Lactated 1,000 ML IVC SCH ×3 (07:59→23:12)
[2016-06-18] MEDS: *HR* Enoxaparin 30 MG/0.3 ML SYRINGE SQ SCH ×2 (08:13→20:01)
[2016-06-18] MEDS: Ketorolac 15 MG/ML VIAL IVP PRN ×2 (08:13→23:12)
--- NOTE | 2016-06-18 15:05 | Internal Med Progress Note ---
Date of Encounter: 06/18/16 Time of Encounter: 14:49 - Assessment and plan (1) Closed fracture of left wrist Current Visit: Yes Status: Acute Assessment and plan: s/p Hemiarthroplasty left hip and Open reduction with internal fixation of left distal radius fracture ECHO with normal LVEF management as per ortho team. Qualifiers: Encounter type: initial encounter Qualified Code(s): S62.102A - Fracture of unspecified carpal bone, left wrist, initial encounter for closed fracture (2) Closed left hip fracture Current Visit: Yes Status: Acute Assessment and plan: L-Hemiarthroplasty Hip , 1st POD DVT prophylaxis, analgesics. monitor post op care, post op h/h stable. bedside PT/OT when able. possible plan for DC to rehab. Qualifiers: Encounter type: initial encounter Qualified Code(s): S72.002A - Fracture of unspecified part of neck of left femur, initial encounter for closed fracture - Time Spent With Patient 25 - 35 minutes - Subjective Interval history: seen at the bedside,denies any complaints. admitted for Displaced left femoral neck fracture and Displaced, comminuted left distal radius fracture. s/p hemiarthroplasty of left hip and open reduction with internal fixation of left distal radius fracture. - Constitutional Vitals: Temp Pulse Resp BP Pulse Ox 98.3 F 113 16 161/75 93 L 06/18/16 12:09 06/18/16 12:09 06/18/16 12:09 06/18/16 12:09 06/18/16 12:09 General appearance: Present: A&O X 3, no acute distress, answers questions appropriately. Absent: morbidly obese, underweight Exam: General appearance: Present: A&O X 3, no acute distress, answers questions appropriately. - Head Head exam: Present: atraumatic - Eye Eye exam: Present: EOMI - ENT ENT exam: Present: mucous membranes dry - Respiratory Respiratory exam: Present: CTAB - Cardiovascular Cardiovascular exam: Present: RRR. Absent: diastolic murmur, distant heart sounds, systolic murmur - GI/Abdominal GI/Abdominal exam: Present: normal bowel sounds, soft, no peritoneal signs. Absent: distended, tenderness - Expanded Lower Extremities Exam Hip exam: Present: swelling (mild ), tenderness. Absent: abrasion, crepitus, deformity, ecchymosis, erythema, laceration Upper Leg exam: Present: swelling (mild), tenderness. Absent: abrasion, crepitus, deformity, dislocation, ecchymosis, laceration Knee exam: Absent: ecchymosis Internal Medicine: Result - Labs CBC & Chem 7: 06/17/16 17:28 06/18/16 03:16 Labs: Short CBC 06/17/16 Range/Units 17:28 Hgb 11.2 L D (11.5-15.4) g/dL Hct 31.7 L (35.3-44.9) % BMP 06/17/16 06/18/16 17:28 03:16 Sodium 136 133 L Potassium 3.7 4.0 Chloride 107 105 Carbon Dioxide 17 L 18 L BUN 13 12 Creatinine 0.72 0.62 Glucose 157 H 119 H Calcium 7.9 L 7.9 L - ABG Interpretation ABG results: PT/INR, D-dimer PT 11.9 Seconds (9.4-12.1) 06/16/16 15:58 - Impressions Impressions Fluoroscopy 06/17/16 00:00 IMPRESSION: Intraprocedural fluoroscopic spot images as above. See separate procedure report for more information. D/ / 06/17/2016 16:09:30 Joselito Grier MD / liza Interpreting Provider: Joselito Grier MD Wrist X-Ray 06/17/16 00:00 IMPRESSION: Intraprocedural fluoroscopic spot images as above. See separate procedure report for more information. D/ / 06/17/2016 16:09:30 Joselito Grier MD / liza Interpreting Provider: Joselito Grier MD Hip X-Ray 06/17/16 17:04 IMPRESSION: Normal postoperative changes recent left hip hemiarthroplasty. D/ / 06/17/2016 17:20:45 Izaiah Smith MD / serafin Interpreting Provider: Izaiah Smith MD - VTE Documentation of Mechanical Device: Venous foot pump, device Consult Discharge Plan - Plan Referrals: NO,PCP [Primary Care Provider] -
[2016-06-18] MEDS: 0.9 % Sodium Chloride 1,000 ML IVC SCH (15:25)
--- NOTE | 2016-06-18 21:01 | Orthopedics Progress Note ---
Date of Encounter: 06/18/16 Time of Encounter: 20:58 Subjective Principal diagnosis: Left hip and left wrist fractures Interval history: Patient is postoperative day #1 hemiarthroplasty left hip and ORIF left distal radius fractures. She is having anticipated pain. Denies neurovascular complaints. Limited ambulation thus far. Vital signs are stable. She is afebrile. Left upper extremity dressings are clean dry and intact. Distal neurosensory exam is normal. There is edema in the fingers. Left hip dressing is clean and dry without drainage. Postop fluoroscopic views of the wrist show excellent alignment and plate and screw position. X-rays of the left hip reveal a well-placed cemented prosthesis. Impression: POD #1 left hip hemiarthroplasty and ORIF left distal radius Recommendation: Patient is weightbearing as tolerated on the left lower extremity with hip precautions being maintained. Dressing does not require any definitive care as long as it remains intact. The patient can start range of motion and functional use of the left hand and wrist with no weightbearing across the wrist. I have ordered a platform walker to assist her in ambulation. If the patient is discharged soon, I will need to see her back in the office in about 2 weeks' time or sooner should any problems arise. Objective Vital signs: Vital Signs Temp Pulse Resp BP Pulse Ox 06/18/16 20:10 99.6 F 109 18 157/70 95 06/18/16 15:25 101.0 F H 104 18 159/61 95 06/18/16 12:09 98.3 F 113 16 161/75 93 L 06/18/16 06:33 98.5 F 107 18 154/73 98 06/18/16 04:49 98.5 F 113 17 167/95 96 06/18/16 00:47 98.5 F 83 16 136/68 100 Intake and Output 06/18/16 06/18/16 06/18/16 07:59 15:59 23:59 Intake Total 1250 / 1250 Output Total 800 / 800 1000 / 1000 Balance 450 / 450 -1000 / -1000 Intake: IV Fluids 1250 / 1250 Vancocin 1,000 MG In 250 / 250 Dextrose 5% 250 ML @ 167 mls/hr IV Q12H ONE Rx#: [id number] Lactated Ringers 1,000 ML 1000 / 1000 @ 125 mls/hr IVC .Q8H MADHAVI Rx#:[id number] Output: Catheter 800 / 800 1000 / 1000 - Labs CBC & BMP: 06/17/16 17:28 06/18/16 03:16 Labs: Abnormal lab results Hgb 11.2 g/dL (11.5-15.4) L D 06/17/16 17:28 Hct 31.7 % (35.3-44.9) L 06/17/16 17:28 MCHC 35.6 g/dL (31.6-35.5) H 06/16/16 15:58 Plt Count 126 K/mcL (140-400) L 06/17/16 03:50 APTT 23.8 Seconds (26.0-36.0) L 06/17/16 03:50 Sodium 133 mEq/L (136-145) L 06/18/16 03:16 Carbon Dioxide 18 mEq/L (19-29) L 06/18/16 03:16 Glucose 119 mg/dL (70-99) H 06/18/16 03:16 Calculated Osmolality 277 (280-300) L 06/18/16 03:16 Calcium 7.9 mg/dL (8.6-10.8) L 06/18/16 03:16 - VTE Documentation of Mechanical Device: Venous foot pump, device Consult Discharge Plan - Plan Referrals: NO,PCP [Primary Care Provider] -
[2016-06-18] MEDS: Latanoprost 2.5 ML BOTTLE BOTH EYES SCH (22:07)
[2016-06-19] MEDS ORDERED: *HR* HYDROmorphone 2 MG TABLET PO PRN (07:16)
[2016-06-19] MEDS ORDERED: Ondansetron ODT 4 MG TAB.RAPDIS SL PRN (07:18)
[2016-06-19] MEDS: *HR* Enoxaparin 30 MG/0.3 ML SYRINGE SQ SCH (07:42)
[2016-06-19 08:07] LABS: BUN/Creatinine Ratio 18 (6-26); Blood Urea Nitrogen 12 mg/dL (7-20); Calcium 7.9 mg/dL (8.6-10.8); Carbon Dioxide 16 mEq/L (19-29); Chloride 106 mEq/L (98-109); Glucose 117 mg/dL (70-99); Osmolality,Calculated 279 (280-300); Potassium 4.2 mEq/L (3.5-4.5); Sodium 134 mEq/L (136-145); eGFR For African Americans > 60 (> 60); eGFR For Non-African Americans > 60 (> 60)
[2016-06-19 09:39] LABS: Basophils % 0.2 %; Eosinophils % 0.2 %; Hematocrit 29.1 % (35.3-44.9); Hemoglobin 10.3 g/dL (11.5-15.4); Immature Granulocytes % 0.8 % (0-4); Lymphocytes # 0.7 K/mcL (0.6-4.6); Lymphocytes % 6.6 %; Mean Corpuscular HGB Conc 35.4 g/dL (31.6-35.5); Mean Corpuscular Hemoglobin 31.7 pg (28.0-33.3); Mean Corpuscular Volume 89.5 fL (83.0-100.0); Monocytes # 0.7 K/mcL (0.0-1.3); Monocytes % 7.3 %; Neutrophils # 8.6 K/mcL (1.6-8.9); Platelet Count 138 K/mcL (140-400); Red Blood Count 3.25 M/mcL (3.82-4.97); Red Cell Distribution Width 12.8 % (11.5-14.5); Segmented Neutrophils % 84.9 %
[2016-06-19 09:40] LABS: BUN/Creatinine Ratio 12 (6-26); Blood Urea Nitrogen 8 mg/dL (7-20); Calcium 8.5 mg/dL (8.6-10.8); Carbon Dioxide 22 mEq/L (19-29); Chloride 100 mEq/L (98-109); Glucose 186 mg/dL (70-99); Osmolality,Calculated 279 (280-300); Sodium 133 mEq/L (136-145); eGFR For African Americans > 60 (> 60); eGFR For Non-African Americans > 60 (> 60)
[2016-06-19 09:45] LABS: Potassium 3.1 mEq/L (3.5-4.5)
[2016-06-19] MEDS ORDERED: Potassium Chloride Elixir 20 MEQ/15 ML UDC PO SCH (14:30)
--- NOTE | 2016-06-19 14:30 | Discharge Summary ---
Date of Encounter: 06/19/16 Time of Encounter: 14:28 - Discharge Diagnosis (1) Closed fracture of left wrist Priority: Primary Status: Acute Qualifiers: Encounter type: initial encounter Qualified Code(s): S62.102A - Fracture of unspecified carpal bone, left wrist, initial encounter for closed fracture (2) Closed left hip fracture Priority: Primary Status: Acute Qualifiers: Encounter type: initial encounter Qualified Code(s): S72.002A - Fracture of unspecified part of neck of left femur, initial encounter for closed fracture - Discharge Medications Prescriptions: Tramadol HCl [Ultram] 50 mg PO BID PRN #30 tab PRN Reason: Pain Home Medications: Aspirin [Ecotrin] 325 mg PO BID 06/16/16 [History] Buspirone HCl [Buspar] 10 mg PO TID 06/16/16 [History] Latanoprost [Xalatan] 1 drop BOTH EYES HS 06/16/16 [History] RisperiDONE [Risperdal] 0.5 mg PO TID 06/16/16 [History] Tramadol HCl [Ultram] 50 mg PO BID PRN #30 tab 06/19/16 [Rx] Allergies/Adverse Reactions: Allergies acetaminophen [From Percocet] Allergy (Verified 06/16/16 14:28) See Comments UNFORSURE ciprofloxacin [From Cipro] Allergy (Verified 06/16/16 14:28) Congested codeine Allergy (Verified 06/16/16 14:28) Hives Cortisone Allergy (Verified 06/16/16 14:28) See Comments 10 YEARS AGO escitalopram [From Lexapro] Allergy (Verified 06/16/16 14:28) See Comments gabapentin [From Neurontin] Allergy (Verified 06/16/16 14:28) See Comments CAUSES EYE TO JUMP AROUND iodine Allergy (Verified 06/16/16 14:28) Anaphylaxis lovastatin [From Mevacor] Allergy (Verified 06/16/16 14:28) See Comments ON ALLERGY LIST BUT PATIENT IS UNFORSURE meperidine [From Demerol] Allergy (Verified 06/16/16 14:28) See Comments UNFORSURE mometasone furoate [From Nasonex] Allergy (Verified 06/16/16 14:28) See Comments REALLY STRONG SO I WENT BACK TO [facility] niacin [From Niaspan Extended-Release] Allergy (Verified 06/16/16 14:28) See Comments UNSURE omeprazole [From Prilosec] Allergy (Verified 06/16/16 14:28) Swelling of Lip/Tongue/Throat Oxycodone [From Percocet] Allergy (Verified 06/16/16 14:28) See Comments UNFORSURE Penicillins [PCN] Allergy (Verified 06/16/16 14:28) Hives prednisone Allergy (Verified 06/16/16 14:28) See Comments PATIENT UNFORSURE propoxyphene [From Darvon] Allergy (Verified 06/16/16 14:28) See Comments ON ALLERGY LIST BUT PATIENT UNFOR SURE OF REACTION risedronate sodium [From Actonel] Allergy (Verified 06/16/16 14:28) See Comments UNFORSURE rofecoxib [From Vioxx] Allergy (Verified 06/16/16 14:28) See Comments UNFORSURE HAD A REACTION AND HE CHANGED MY MEDS Sulfa (Sulfonamide Antibiotics) Allergy (Verified 06/16/16 14:28) Anaphylaxis topiramate [From Topamax] Allergy (Verified 06/16/16 14:28) See Comments UNFORSURE tramadol [From Ultram] Allergy (Verified 06/16/16 14:28) Hives venlafaxine [From Effexor] Allergy (Verified 06/16/16 14:28) See Comments UNFORSURE Procedures/tests Complete & Pending: Procedures Performed prior 72 hours Category Date Time Status EV echocardiogram Routine Y 06/17/16 07:00 Completed Date of admission: 06/16/16 18:04 Primary care physician: PCP NO Consults: 06/16/16 15:38 Consult to Cardiology [CONS] Routine Comment: Consulting Provider: Cardiology Yancy Reason for Consult: Abnormal EKG. Fell and broke L wrist and L hip. Surgery clearance. Time Notified: 15:39 Call Completed: No 06/17/16 17:04 Consult to Occupational Therapy [CONS] Routine Comment: Evaluate, develop and implement POC Consult to Orthopedic Navigator [CONS] [CONS] Routine Consult to Physical Therapy [CONS] Routine Comment: Evaluate, develop and implement POC Consult to Dis[employer] [CONS] Routine Reason for SW Consult: post -op hip fracture RT Post Op Consult [CONS] Routine Discharging clinician: Jewell De Oliveira Anticipated date of discharge: 06/19/16 - Patient Status Disposition: Transfer Inpatient Rehab Fac Condition: Fair Functional capacity at discharge: uses cane/walker Overall status at discharge: patient is progressing back to baseline - Discharge Instructions Follow Up With: WILLIAM,PCP [Primary Care Provider] - - Diet and Activity Activity: as per physical therapy Diet: advance to your usual diet Interval History: Ms. Brenner is a 81 year old female admitted from [facility] for L wrist and Hip fracture. At 6:30am this morning patient trip and fell on the floor. The trip was from being clumsy and not putting her shoes on all the way. She lives home alone, but has her children who are close and check up on her a lot. At the ER, workup revealed L hip and L wrist fracture. Patient is in the room with her sisters. She is speaking clearly, smiling, laughing, complains of moderate pain over the fracture areas. Denies any CP, SOB. Admits to tingling in her fingers, no tingling in her leg. She is able to feel and move her fingers/toes. 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 Has not gotten tetanus in last 10 years, unsure if received in ED. takes aspirin 325mg BID for "achy joints". [facility] from [facility]. The left wrist reveals a complex comminuted and displaced fracture of her left distal radius. This is associated with an ulnar styloid fracture. Left hip x-ray reveals a displaced femoral neck fracture. Generalized osteopenia. ortho was consulted for Displaced left femoral neck fracture and Displaced, comminuted left distal radius fracture she underwent Hemiarthroplasty left hip and Open reduction with internal fixation of left distal radius fracture with Dr. Boothe. cardiiology was consulted for pre op risk assesment and she was deemed to be low risk for the procedure. she remained stable post -op. bedside PT/OT Was consulted and she was recommended dc to inpt. rehab. she is being dc today in stable condition and will f.u as OP with ortho. Hospital course: Ms. Brenner is a 81 year old female Time spent discussing smoking cessation with patient: more than 10 minutes - Time Spent with Patient Total time spent providing and/or coordinating discharge services: Greater than 30 minutes - Constitutional Vitals: Temp Pulse Resp BP Pulse Ox 99.6 F 88 16 154/74 97 06/19/16 10:33 06/19/16 10:33 06/19/16 10:33 06/19/16 10:33 06/19/16 10:33 General appearance: Present: A&O X 3, no acute distress, answers questions appropriately. Absent: morbidly obese, underweight Exam: General appearance: Present: A&O X 3, no acute distress, answers questions appropriately. - Head Head exam: Present: atraumatic - Eye Eye exam: Present: EOMI - ENT ENT exam: Present: mucous membranes dry - Respiratory Respiratory exam: Present: CTAB - Cardiovascular Cardiovascular exam: Present: RRR. Absent: diastolic murmur, distant heart sounds, systolic murmur - GI/Abdominal GI/Abdominal exam: Present: normal bowel sounds, soft, no peritoneal signs. Absent: distended, tenderness - Expanded Lower Extremities Exam Hip exam: Present: swelling (mild ), tenderness. Absent: abrasion, crepitus, deformity, ecchymosis, erythema, laceration Upper Leg exam: Present: swelling (mild), tenderness. Absent: abrasion, crepitus, deformity, dislocation, ecchymosis, laceration Knee exam: Absent: ecchymosis - VTE Documentation of Mechanical Device: Venous foot pump, device
--- NOTE | 2016-06-19 14:33 | Physician Discharge Referral ---
ExtendedCare Referral Info Transfer To: [facility] Provider in Charge: amy madrigal Institutional Level of Care: Intermediate - MR - Diagnosis (1) Closed fracture of left wrist Status: Acute (2) Closed left hip fracture Status: Acute - Transfer Medications Prescriptions: Oxycodone HCl 10 mg PO Q8H #30 tab Home Medications: Aspirin [Ecotrin] 325 mg PO BID 06/16/16 [History] Buspirone HCl [Buspar] 10 mg PO TID 06/16/16 [History] Latanoprost [Xalatan] 1 drop BOTH EYES HS 06/16/16 [History] RisperiDONE [Risperdal] 0.5 mg PO TID 06/16/16 [History] Oxycodone HCl 10 mg PO Q8H #30 tab 06/19/16 [Rx] Allergies/Adverse Reactions: Allergies acetaminophen [From Percocet] Allergy (Verified 06/16/16 14:28) See Comments UNFORSURE ciprofloxacin [From Cipro] Allergy (Verified 06/16/16 14:28) Congested codeine Allergy (Verified 06/16/16 14:28) Hives Cortisone Allergy (Verified 06/16/16 14:28) See Comments 10 YEARS AGO escitalopram [From Lexapro] Allergy (Verified 06/16/16 14:28) See Comments gabapentin [From Neurontin] Allergy (Verified 06/16/16 14:28) See Comments CAUSES EYE TO JUMP AROUND iodine Allergy (Verified 06/16/16 14:28) Anaphylaxis lovastatin [From Mevacor] Allergy (Verified 06/16/16 14:28) See Comments ON ALLERGY LIST BUT PATIENT IS UNFORSURE meperidine [From Demerol] Allergy (Verified 06/16/16 14:28) See Comments UNFORSURE mometasone furoate [From Nasonex] Allergy (Verified 06/16/16 14:28) See Comments REALLY STRONG SO I WENT BACK TO [facility] niacin [From Niaspan Extended-Release] Allergy (Verified 06/16/16 14:28) See Comments UNSURE omeprazole [From Prilosec] Allergy (Verified 06/16/16 14:28) Swelling of Lip/Tongue/Throat Oxycodone [From Percocet] Allergy (Verified 06/16/16 14:28) See Comments UNFORSURE Penicillins [PCN] Allergy (Verified 06/16/16 14:28) Hives prednisone Allergy (Verified 06/16/16 14:28) See Comments PATIENT UNFORSURE propoxyphene [From Darvon] Allergy (Verified 06/16/16 14:28) See Comments ON ALLERGY LIST BUT PATIENT UNFOR SURE OF REACTION risedronate sodium [From Actonel] Allergy (Verified 06/16/16 14:28) See Comments UNFORSURE rofecoxib [From Vioxx] Allergy (Verified 06/16/16 14:28) See Comments UNFORSURE HAD A REACTION AND HE CHANGED MY MEDS Sulfa (Sulfonamide Antibiotics) Allergy (Verified 06/16/16 14:28) Anaphylaxis topiramate [From Topamax] Allergy (Verified 06/16/16 14:28) See Comments UNFORSURE tramadol [From Ultram] Allergy (Verified 06/16/16 14:28) Hives venlafaxine [From Effexor] Allergy (Verified 06/16/16 14:28) See Comments UNFORSURE - Respiratory Orders Smoking Cessation: Smoking cessation has been advised. For more information, call the [place] Tobacco Quit Line at 7-762-NYEN-NOW. - Advance Directives Code Status: DNR-Arrest/Don't Intubate - Mobility Orders Other (Patient is weightbearing as tolerated on the left lower extremity with hip precautions being maintained. Dressing does not require any definitive care as long as it remains intact. The patient can start range of motion and functional use of the left hand and wrist with no weightbearing across the wrist.) - Rehabiliation Orders Rehab Potential: Fair - Diet Orders Regular CERTIFICATION: I certify that the transfer of the above named patient to an Extended Care Facility is necessary for the continuing treatment of the diagnosis listed. The above information is true and accurate reflection of patient's current condition. Confidential - Redisclosure prohibited without a patient's written consent.
[2016-06-19 14:36] VITALS: BP 159/72
== END 2016-06-19 17:31 | DRG 470 ==
LOC: 3NENU → SUATTDRO 18:04
PROVIDERS: ADMIT Internal Medicine; ATTEND Internal Medicine Endocrinology, Diabetes & Metabolism